=== PATIENT | female | born 1965 | race Caucasian/White ===

== ENCOUNTER 2025-03-03 04:45 | Emergency (ER) | payer BC ==
[2025-03-03] MEDS: Ondansetron 4 MG/2 ML SDV IVPUSH ONE (05:01)
[2025-03-03] MEDS: Ketorolac 30 MG/ML SDV IVPUSH ONE (05:04)
[2025-03-03 05:05] LABS: BASOPHILS PERCENT AUTO 0.3 % (0.0-1.0); EOSINOPHILS PERCENT AUTO 2.6 % (1.0-3.0); LYMPHOCYTES PERCENT AUTO 29.0 % (20.5-50.1); MONOCYTES PERCENT AUTO 7.2 % (2-8); NEUTROPHILS PERCENT AUTO 60.9 % (42.2-75.2); PLATELET COUNT,PLT 276 10^3/uL (150-450); RED BLOOD CELL COUNT 4.25 10^6/uL (4.2-5.4); WHITE BLOOD CELL COUNT,WBC 10.7 10^3/uL (5.0-10.0)
[2025-03-03 05:24] LABS: A/G RATIO 1.1; ALANINE AMINOTRANSFERASE,ALT 26 U/L (14-59); ASPARTATE AMNIOTRANSFERASE,AST 22 U/L (15-37); BILIRUBIN TOTAL 0.8 mg/dL (0.2-1.0); BLOOD UREA NITROGEN,BUN 17 mg/dL (7-18); CARBON DIOXIDE,CO2 26 mmol/L (21-32); CHLORIDE,CL 105 mmol/L (98-107); CREATININE 0.76 mg/dL (0.55-1.02); GLUCOSE RANDOM 128 mg/dL (70-99); POTASSIUM,K 3.9 mmol/L (3.5-5.1); PROTEIN TOTAL,TP 7.3 g/dL (6.4-8.2); SODIUM,NA 141 mmol/L (136-145)
[2025-03-03 05:27] LABS: LACTIC ACID 1.0 mmol/L (0.4-2.0)
[2025-03-03 05:32] LABS: ESTIMATED GFR 90 mL/min (>=60)
[2025-03-03] MEDS ORDERED: Take Home: Ondansetron 4 MG Tab.DIS, 5 Tab Pack PO ONE (06:16)
[2025-03-03 06:54] VITALS: BP 118/65; PULSE 76
== END 2025-03-03 06:49 | disposition home or self-care (01) ==
LOC: DL.ED 04:45
DX: R19.7 Diarrhea, unspecified (principal); E03.9 Hypothyroidism, unspecified; Z79.890 Hormone replacement therapy
CPT/HCPCS: 36415; 80053; 83605; 83690; 83735; 85025; 96361; 96374; 96375; 99283; 99284; J1885; J2405; J7030